=== PATIENT | female | born 1985 | race Caucasian/White ===

== ENCOUNTER → 2021-07-07 | Day surgery (SDC) | payer OTHER ==
[~2021-07-07] VITALS: Ht 160 cm; Wt 68.0 kg
[~2021-07-07] MED LIST: ACETAMINOPHEN500 M1 PO; COLACE100 MG PO; CONCERTA36 MG PO; MOTRIN600 MG PO; OXY-IR 5MG5 MG PO; SPRINTEC 28 DA1 EACH PO; ZOLOFT50 M1 PO
[2021-07-07 07:59] LABS: HCG (URINE) SCREEN NEGATIVE (NEGATIVE)
[2021-07-07 08:52] LABS: ALBUMIN 3.4 g/dL (3.4-5.0); BILIRUBIN - TOTAL 0.3 mg/dL (0.2-1.0); BUN/CREAT RATIO (CALC) 12.5 RATIO; CREATININE 0.64 mg/dL (0.51-0.95); GLOBULIN (CALCULATION) 3.5 g/dL; POTASSIUM 4.2 mmol/L (3.5-5.1); TOTAL PROTEIN 6.9 g/dL (6.4-8.2)
== END | disposition home or self-care (01) ==
LOC: FAS 07:34
PROVIDERS: Student in an Organized Health Care Education/Training Program
DX: K81.1 Chronic cholecystitis (principal); K82.8 Other specified diseases of gallbladder; K21.9 Gastro-esophageal reflux disease without esophagitis; F41.9 Anxiety disorder, unspecified; E05.90 Thyrotoxicosis, unspecified without thyrotoxic crisis or storm; Z79.899 Other long term (current) drug therapy
CPT/HCPCS: 36415; 80053; 82150; 83690; 84703; J1644; J2001; J2250; J2405; J2704; J3010; J7120; Q9967